=== PATIENT | male | born 1965 | race Caucasian/White ===

== ENCOUNTER 2017-09-29 08:44 | Observation (INO) | payer BC ==
[2017-09-29] MEDS ORDERED: ceFAZolin 2 GM/SWFI 2 GM/20 ML SYR IVP ONE (10:32)
[2017-09-29] MEDS ORDERED: LR 1,000 ML IV ONE (10:32)
--- NOTE | 2017-09-29 11:56 | PDHPUP ---
History & Physical Update H&P update statement: This history and physical update is based on an assessment of the patient which was completed after admission or registration (within 24 hours), but prior to the surgery/procedure.
--- NOTE | 2017-09-29 12:01 | PDANEPAE ---
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 ANE Past Medical History - Cardiovascular History Hx Hypertension: No Hx Arrhythmias: No Hx Chest Pain: No Hx Coronary Artery / Peripheral Vascular Disease: No Hx CHF / Valvular Disease: No Hx Palpitations: No - Pulmonary History Hx COPD: No Hx Asthma/Reactive Airway Disease: No Hx Recent Upper Respiratory Infection: No Hx Oxygen in Use at Home: No Hx Sleep Apnea: Yes Sleep Apnea Screening Result - Last Documented: Negative Pulmonary History Comment: PNEUMONIA X2 IN PAST - Neurologic History Hx Cerebrovascular Accident: No Hx Seizures: No Hx Dementia: No Neurologic History Comment: MIGRAINE ONCE - Endocrine History Hx Diabetes: No Hypothyroid: No - Renal History Hx Renal Disorders: No - Liver History Hx Hepatic Disorders: No - Neurological & Psychiatric Hx Hx Neurological and Psychiatric Disorders: No - Cancer History Hx Cancer: No - GI History Hx Gastrointestinal Disorders: No - Other Health History Other Health History: NEG - Chronic Pain History Chronic Pain: Yes (JOINT PAIN ANKLES, KNEE,HIPS) - Surgical History Prior Surgeries: L MARNIE. TONSILLECTOMY. EYE SURGERY ANE Review of Systems Review of Systems: - Exercise capacity METS (RN): 5 METS - Systems Constitutional: Reports: no symptoms Cardiac: Reports: no symptoms Respiratory: Reports: no symptoms ANE Patient History - Allergies Allergies/Adverse Reactions: No Known Allergies Allergy (Unverified 09/23/17 14:18) - Home Medications Home Medications: Acetaminophen [Tylenol 325mg (*)] 325 mg PO DAILY PRN 09/23/17 [Last Taken 1 Week Ago ~09/22/17] Herbals/Supplements -Info Only 1 ea PO DAILY 09/23/17 [Last Taken Unknown] Meloxicam 15 mg PO DAILY 09/23/17 [Last Taken 09/23/17] - NPO status NPO Since - Liquids (Date): 09/29/17 NPO Since - Liquids (Time): 08:30 NPO Since - Solids (Date): 09/28/17 NPO Since - Solids (Time): 18:00 - Smoking Hx Smoking Status: Never smoked - Family Anes Hx Family Hx Anesthesia Complications: NONE ANE Labs/Vital Signs - Vital Signs Blood Pressure: 156/98 Heart Rate: 82 Respiratory Rate: 12 O2 Sat (%): 95 Height: 170.18 cm Weight: 94.347 kg ANE Physical Exam - Airway Neck exam: FROM Mallampati Score: Class 3 (h/o difficult intubation) Mouth exam: normal dental/mouth exam - Pulmonary Pulmonary: clear to auscultation - Cardiovascular Cardiovascular: regular rate and rhythym - ASA Status ASA Status: III ANE Anesthesia Plan Anesthesia Plan: GA w LMA Regional Anesthesia: single shot NB, continuous NB
[2017-09-29] MEDS ORDERED: fentaNYL 100 MCG/2 ML INJ ONE ×4 (12:03→17:07)
[2017-09-29] MEDS ORDERED: BUPIVACAINE 0.5% 30 ML SDV ONE ×2 (12:18→12:27)
[2017-09-29] MEDS ORDERED: PROPOFOL/EMULSION 500 MG/50 ML BOTTLE IV ONE (12:39)
[2017-09-29] MEDS ORDERED: DEXAMETHASONE 4 MG/ML VIAL ONE ×2 (12:39)
[2017-09-29] MEDS ORDERED: LIDOCAINE 2% 5 ML SDV ONE (12:39)
[2017-09-29] MEDS ORDERED: ROPIVACAINE 0.2% 1,100 MG in PUMP SET 1 EA NB SCH (13:30)
[2017-09-29] MEDS ORDERED: KETOROLAC 30 MG/1 ML SDV ONE (16:12)
[2017-09-29] MEDS ORDERED: LR 500 ML IV PRN (16:17)
[2017-09-29] MEDS ORDERED: ONDANSETRON 4 MG/2 ML VIAL IVP PRN ×2 (16:17→16:54)
[2017-09-29] MEDS ORDERED: PROMETHAZINE HCL 25 MG/ML INJ IVP PRN (16:17)
[2017-09-29] MEDS ORDERED: OXYCODONE/APAP 5/325 TAB PO PRN (16:17)
[2017-09-29] MEDS ORDERED: DIAZEPAM 10 MG/2 ML SYR IVP PRN (16:17)
[2017-09-29] MEDS ORDERED: ALBUTEROL 3 ML DEYVIAL IH PRN (16:17)
[2017-09-29] MEDS ORDERED: NALOXONE HCL 0.4 MG/ML INJ IVP PRN (16:17)
[2017-09-29] MEDS ORDERED: ACETAMINOPHEN 500 MG TAB PO PRN (16:17)
--- NOTE | 2017-09-29 16:53 | POSTOPPROG ---
Post Op Note Date of Operation: 09/29/17 Surgeon: Phill Dodd Counter Tender: Handy Anesthesiologist: Sang Anesthesia: GET(General Endotracheal) Pre-op Diagnosis: R ankle and subtalar djd Post-op Diagnosis: same Indication: above Procedure: R ankle fusion and subtalar fusion Inf/Abcess present in the surg proc area at time of surgery?: No EBL: 50-100
[2017-09-29] MEDS ORDERED: oxyCODONE IR 5 MG TAB PO PRN (16:54)
[2017-09-29] MEDS ORDERED: HYDROmorphONE/DILAUDID 1 MG/ML INJ IVP PRN (16:54)
[2017-09-29] MEDS ORDERED: NS 1,000 ML IV SCH (17:00)
--- NOTE | 2017-09-29 17:01 | POSTANESTH ---
Post Anesthetic Evaluation Cardiovascular Status: Normal, Stable (Pt slightly anxious/agitated. Sitting up in bed, removing blankets and complaining of tubes and gown string on neck.) Respiratory Status: Normal, Stable Level of Consciousness/Mental Status: Can Participate in Eval, Mildly Sleepy, Arousable Pain Control: Adequate, Prn Tx Ordered Nausea/Vomiting Control: Adequate, Prn Tx Ordered Complications Possibly Related to Anesthesia: None Noted
[2017-09-29] MEDS ORDERED: ONDANSETRON 4 MG/2 ML VIAL ONE (17:06)
[2017-09-29] MEDS: fentaNYL 100 MCG/2 ML INJ IVP PRN ×2 (17:11→17:25)
[2017-09-29] MEDS: ceFAZolin 2 GM/DEXTROSE 100 ML IV SCH (20:38)
--- NOTE | 2017-09-29 23:49 | GOP ---
[f rep st] OPERATIVE REPORT DATE OF OPERATION: 09/29/2017 SURGEON: Phill Dodd MD BLACK LEATHER BUFFER: Marc Murrell SA ANESTHESIA: General with indwelling popliteal block. PREOPERATIVE DIAGNOSIS: Right ankle arthritis, right subtalar arthritis, and severe ankle and hindfoot deformity. POSTOPERATIVE DIAGNOSIS: Right ankle arthritis, right subtalar arthritis, and severe ankle and hindfoot deformity. PROCEDURE PERFORMED: 1. Right ankle arthrodesis. 2. Right subtalar arthrodesis. 3. Release of deltoid ligament and severe varus deformity correction. FINDINGS: SPECIMENS: None. ESTIMATED BLOOD LOSS: 100 mL. INDICATIONS: This is a 52-year-old male, with Stickler syndrome, who has severe deformity of both ankles, worse on the right, and severe arthritis and pain. We discussed risks and benefits of operative management. We discussed risks of nerve injury, dysvascularity, nonunion, malunion, infection, continued pain, need for further surgery. He elected to proceed. Informed consent was obtained. All questions were answered. He was marked preoperatively. DESCRIPTION OF PROCEDURE: He was taken to the operative suite, sterilely prepped and draped in the usual sterile fashion. Time-out was performed verifying the site, side, location, and there was agreement with the team. Blocks were administered per Anesthesia. Antibiotics were given. Esmarch was utilized, tourniquet was inflated. I began with a lateral incision over the fibula. I dissected the fibula and removed this. This was quite large and hypertrophied and deformed. I used a portion of this for bone graft on the back table. I was able to expose the ankle and subtalar joint. I made flat cuts across the ankle joint to help correct the deformity and prepare the joint for fusion. I also used a combination of saws, chisels to prepare the subtalar joint for fusion and help correct the deformity there as well. I made a medial arthrotomy anteriorly, again to clean out the medial gutter and prepared the joint for fusion and be able to bring the ankle over. I also did deltoid releases, allowing correction. At this point, a small plantar incision was made over the calcaneus. I placed a guidepin through this and up to the center of the talus and then past the ankle after I provisionally pinned the joint and checked the alignment fluoroscopically and clinically. I then reamed the entry reamer to the articular surface of the talus. I then placed the guidewire further up. I used a drill bit to help find the canal. I placed a ball-tip guidewire up this and then used reamers up to an 11 reamer in the tibia, flexible reamers, removed this. I selected the 150, 10 mm nail. Placed this up , helping correct the deformity as it went and achieving compression across the joints. The tourniquet was released. Hemostasis was obtained. I made a small incision in the heel and used the guide to help place the blade over the guidepin. Drilled this and then placed the helical blade. Then used mallet blows on the bottom of the nail with the blade in place to achieve further compression across the 2 joints. I then placed the subtalar screw using the guide and the 2 proximal interlock screws using the guide. These were 5.0 screws. I then irrigated this, took final x-rays confirming the reduction, deformity correction, and the hardware. Clinically, this deformity looked corrected and the foot was in plantigrade position. I bone grafted the ankle and subtalar joint with autograft bone. The heel was thoroughly irrigated and closed with 0 Vicryl, 2-0 Vicryl, 3-0 nylon, and he was placed in sterile dressings and splint and taken to PACU in stable condition. COMPLICATIONS: None. DRAINS: None. CONDITION: Stable. /[id number]/MODL MTDD
[2017-09-30] MEDS: ceFAZolin 2 GM/DEXTROSE 100 ML IV SCH (04:11)
[2017-09-30] MEDS ORDERED: ASPIRIN 325 MG TAB PO SCH (09:00)
[2017-09-30 11:46] VITALS: BP 123/75; PULSE 86; RESP 16; TEMP 97.8; O2SAT 94
--- NOTE | 2017-09-30 11:57 | SOAPPROG ---
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 Pt has indwelling lateral popliteal PNB catheter. Pt reports minimal pain at surgical site. Plan: 1. Maintain PNB infusion at 8 mL/hr. Pt instructed on how to do boluses at home if pain increases. 2. Pt instructed in warning signs of IV infusion and to clamp pump immediately if he experiences those. 3. Pt reminded that he will be removing catheter once LA reservoir is empty. Pt voiced understanding. He has my cell phone number in case questions arise. 09/30/17 11:54 Objective: Vital Signs Temp Pulse Resp BP Pulse Ox 36.6 C 86 16 123/75 H 94 09/30/17 11:44 09/30/17 11:44 09/30/17 11:44 09/30/17 11:44 09/30/17 11:44 09/29/17 09/30/17 10/01/17 05:59 05:59 05:59 Intake Total 3190 1000 Output Total 975 300 Balance 2215 700 - Pending Discharge Pending Discharge Within 24 Hours: Yes Pending Discharge Date: 10/01/17 Pending Discharge Time: 11:00 Physical Exam - Physical Exam General Appearance: alert, no apparent distress Extremities: other (R lat pop PNB catheter insertion site: dressings intact. No induration/erythema/discharge at cath insertion site.) ICD10 Worksheet Patient Problems: Problems Problem Status Onset Stickler syndrome Acute - ICD10 Problem Qualifiers (1) Stickler syndrome
--- NOTE | 2017-09-30 16:28 | GDS ---
[f rep st] DISCHARGE SUMMARY REASON FOR HOSPITALIZATION: He was admitted after right ankle and subtalar fusion for severe hindfoo t deformity and arthritis. He progressed well. His pain is well controlled. Met criteria for disch arge. DISPOSITION: He was sent home on a regular diet. He was sent home nonweightbearing of right lower e xtremity. He was sent home in a splint. He was sent home with pain medication, oxycodone as well as Ultram and Zofran. He is also told to take a full-strength aspirin once a day for blood clot prophy laxis. He is wearing MARCIA hose. He will ice and elevate this. He will call or come back to the hosp ital if there is any chest pain, shortness of breath, severe worsening of his pain, concern for blood clot or otherwise concern, and he will follow up as scheduled in 1 week. /[id number]/MODL
--- NOTE | 2017-10-02 10:36 | SOAPPROG ---
SOAP Progress Note Assessment/Plan: Assessment: This report is based on a telephone conversation with the patient. 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 Pt had indwelling lateral popliteal PNB catheter placed pre-operatively. Pt reports minimal/moderate pain at surgical site (4/10). LA reservoir is empty. Pt removed catheter with tip intact. No erythema or induration at insertion site per pt. Plan: 1. Continue pain management with ice, elevation, and oral pain meds as needed. 2. Until full sensation back in foot, be careful about having heat or cold for too long on the toes or other numb area of the foot. Do not place foot near a fire, stove, or other heat source until numbness has resolved. 09/30/17 11:54 10/02/17 10:34 Objective: Vital Signs Temp Pulse Resp BP Pulse Ox 36.6 C 86 16 123/75 H 94 09/30/17 11:44 09/30/17 11:44 09/30/17 11:44 09/30/17 11:44 09/30/17 11:44 10/01/17 10/02/17 10/03/17 05:59 05:59 05:59 Intake Total 1000 Output Total 300 Balance 700 ICD10 Worksheet Patient Problems: Problems Problem Status Onset Stickler syndrome Acute - ICD10 Problem Qualifiers (1) Stickler syndrome
== END 2017-09-30 13:40 | disposition home or self-care (01) ==
LOC: INTOOBSV 10:13 → F3N 10:13 → UNDODISOB 09-30 12:43 → F3N 09-30 13:34 → UNDODISOB 09-30 13:40
PROVIDERS: ADMIT Orthopaedic Surgery; ATTEND Orthopaedic Surgery
PROC: BQ1 Imaging, Non-Axial Lower Bones, Fluoroscopy (ICD-10-PCS; 2017-09-29)
PROC: 0SGF0JZ Fusion of Right Ankle Joint with Synthetic Substitute, Open Approach (ICD-10-PCS; principal; 2017-09-29 12:15)
PROC: 0SGH0JZ Fusion of Right Tarsal Joint with Synthetic Substitute, Open Approach (ICD-10-PCS; principal; 2017-09-29 12:15)
PROC: 0MN Bursae and Ligaments, Release (ICD-10-PCS; principal; 2017-09-29 12:15)
DX: M19.071 Primary osteoarthritis, right ankle and foot (principal); Q89.8 Other specified congenital malformations; E78.5 Hyperlipidemia, unspecified; M10.9 Gout, unspecified
CPT/HCPCS: 27612; 27870; 27899; 28725; 76001; 97161; 97165; G0378; C1713; J0690; J1100; J1885; J2405; J2704; J2795; J3010